=== PATIENT | female | born 1965 | race African-American/Black ===

== ENCOUNTER → 2017-01-17 | Outpatient (CLI) | payer OTHER ==
[~2017-01-17] MED LIST: ALDACTONE25 MG PO; K-DUR20 ME1 PO; METOPROLOL TAR25 MG PO; ZESTORETIC 20/11 TAB PO
--- NOTE | ~2017-01-17 | US128 ---
[id number] [facility]. [facility] [address]. [place], [place] [address] [id number] O MR#: [id number] Acc #: [id number] NAME: SARATH JOHNSON : 1965 SEX: F STUDY DATE/TIME: 01/17/2017 9:15 UNIT: [facility] ROOM: STUDY DESCRIPTION: US Thyroid Attending Physician: Crystal Salas M.D. Ordering Physician: Crystal Salas M.D. Primary Care Physician: Crystal Salas M.D. MEDICAL IMAGING REPORT This report is preliminary unless electronic signature is present EXAM Thyroid ultrasound. DATE OF STUDY 01/17/2017 COMPARISON STUDIES None CLINICAL HISTORY Thyroid nodule identified incidentally on chest CT dated 12/02/2016. FINDINGS There is a hypoechoic nodule in the isthmus measuring 1.8 x 1.7 x 0.9 cm. It would be easily amenable to ultrasound-guided needle aspiration. No other nodules are seen and the gland is otherwise unremarkable. IMPRESSION Hypoechoic isthmic nodule 1.8 x 1.7 x 0.9 cm. Recommend ultrasound-guided needle aspiration. Dictated by... Lance Calvo M.D. THIS IS AN ELECTRONICALLY VERIFIED REPORT Lance Calvo M.D. at 01/17/2017 5:03 PM JOCELYNN/yusef TD: 01/17/2017 14:52 JOB #: [id number] MEDICAL IMAGING REPORT COPY
== END | disposition home or self-care (01) ==
LOC: CWCC 09:03
DX: E04.1 Nontoxic single thyroid nodule (principal)
CPT/HCPCS: 76536